=== PATIENT | male | born 1945 | race Caucasian/White ===

== ENCOUNTER 2016-10-26 03:51 | Emergency (ER) | payer MEDICARE ==
[2016-10-26 05:52] VITALS: BMI 27.9
--- NOTE | 2016-10-26 06:07 | PDOC ---
History of Present Illness - General History Source: Patient Exam Limitations: No Limitations - History of Present Illness Initial Comments: 10/26/16 06:27 The patient is a 71 year old male, with significant past medical history of HTN , DM, who presents today complaining of 2 days of a stiff neck that is progressively worsening. The patient states that he is unable to turn his head from left to right or up and down. He does not think that he slept uncomfortably. He has not had a recent change in medications. Denies recent trauma. Denies heavy lifting. Denies fever, chills, nausea, vomiting. Allergies: seafood Social Hx: No tobacco use. No alcohol use. PCP- Dr. Abimael Desai <Kriss Juarez - Last Filed: 10/26/16 06:33> <Della Monahan - Last Filed: 10/26/16 11:04> <Skyla Hagan - Last Filed: 10/27/16 05:41> - General Chief Complaint: Pain, Acute Stated Complaint: NECK PAIN Time Seen by Provider: 10/26/16 06:04 Past History <Kriss Juarez - Last Filed: 10/26/16 06:33> <Della Monahan - Last Filed: 10/26/16 11:04> - Psycho/Social/Smoking Cessation Hx Anxiety: No Suicidal Ideation: No Smoking Status: No Smoking History: Never smoked Have you smoked in the past 12 months: No Number of Cigarettes Smoked Daily: 0 Information on smoking cessation initiated: No Hx Alcohol Use: No Drug/Substance Use Hx: No <Skyla Hagan - Last Filed: 10/27/16 05:41> - Past Medical History Allergies/Adverse Reactions: Allergies Allergy/AdvReac Type Severity Reaction Status Date / Time No Known Drug Allergies Allergy Verified 10/26/16 06:37 SEAFOOD Allergy Rash Uncoded 10/26/16 06:35 Home Medications: Ambulatory Orders Ibuprofen [Advil -] 400 mg PO PRN 10/26/16 Methocarbamol [Robaxin -] 500 mg PO BID PRN #14 tablet 10/26/16 Review of Systems - Review of Systems Able to Perform ROS?: Yes Comments:: 10/26/16 06:27 GENERAL/CONSTITUTIONAL: No fever or chills. No weakness. HEAD, EYES, EARS, NOSE AND THROAT: No change in vision. No ear pain or discharge. No sore throat. CARDIOVASCULAR: No chest pain or shortness of breath. RESPIRATORY: No cough, wheezing, or hemoptysis. GASTROINTESTINAL: No nausea, vomiting, diarrhea or constipation. GENITOURINARY: No dysuria, frequency, or change in urination. MUSCULOSKELETAL: +neck stiffness. No joint or muscle swelling or pain. No back pain. SKIN: No rash NEUROLOGIC: No headache, vertigo, loss of consciousness, or change in strength/ sensation. ENDOCRINE: No increased thirst. No abnormal weight change. HEMATOLOGIC/LYMPHATIC: No anemia, easy bleeding, or history of blood clots. ALLERGIC/IMMUNOLOGIC: No hives or skin allergy. <Kriss Juarez - Last Filed: 10/26/16 06:33> *Physical Exam - Vital Signs Last Vital Signs Temp Pulse Resp BP Pulse Ox 98.7 F 80 14 158/82 98 10/26/16 05:50 10/26/16 05:50 10/26/16 05:50 10/26/16 05:50 10/26/16 05:50 - Physical Exam Comments: 10/26/16 06:27 GENERAL: Awake, alert, and fully oriented, in no acute distress HEAD: No signs of trauma EYES: PERRLA, EOMI, sclera anicteric, conjunctiva clear ENT: Auricles normal inspection, hearing grossly normal, nares patent, oropharynx clear without exudates. Moist mucosa NECK: neck is flexed and slightly turned to the right. no lymphadenopathy, JVD, or masses LUNGS: Breath sounds equal, clear to auscultation bilaterally. No wheezes, and no crackles HEART: Regular rate and rhythm, normal S1 and S2, no murmurs, rubs or gallops ABDOMEN: Soft, nontender, normoactive bowel sounds. No guarding, no rebound. No masses EXTREMITIES: Normal range of motion, no edema. No clubbing or cyanosis. No cords, erythema, or tenderness NEUROLOGICAL: Cranial nerves II through XII grossly intact. Normal speech, normal gait SKIN: Warm, Dry, normal turgor, no rashes or lesions noted. <Kriss Juarez - Last Filed: 10/26/16 06:33> - Vital Signs Last Vital Signs Temp Pulse Resp BP Pulse Ox 98.0 F 79 18 139/70 98 10/26/16 07:00 10/26/16 07:00 10/26/16 07:00 10/26/16 07:00 10/26/16 07:05 <Della Monahan - Last Filed: 10/26/16 11:04> - Vital Signs Last Vital Signs Temp Pulse Resp BP Pulse Ox 98.7 F 80 14 158/82 98 10/26/16 05:50 10/26/16 05:50 10/26/16 05:50 10/26/16 05:50 10/26/16 05:50 <Skyla Hagan - Last Filed: 10/27/16 05:41> ED Treatment Course - LABORATORY CBC & Chemistry Diagram: 10/26/16 07:55 10/26/16 07:55 - ADDITIONAL ORDERS Additional order review: Laboratory Results 10/26/16 07:55 Sodium 135 L Potassium 4.5 Chloride 96 L Carbon Dioxide 29 Anion Gap 10 BUN 14 Creatinine 0.6 L Creat Clearance w eGFR > 60 Random Glucose 318 H* Calcium 9.4 Total Bilirubin 0.6 AST 20 ALT 23 Alkaline Phosphatase 108 Total Protein 7.9 Albumin 3.9 10/26/16 07:55 RBC 4.24 MCV 82.6 MCHC 34.2 RDW 14.1 MPV 10.4 Neutrophils % 73.4 Lymphocytes % 10.9 Monocytes % 9.3 Eosinophils % 6.0 H Basophils % 0.4 - Medications Given in the ED: ED Medications Discontinued Medications Generic Name Dose Route Start Last Admin Trade Name Joseq PRN Reason Stop Dose Admin Benztropine Mesylate 1 mg 10/26/16 06:15 10/26/16 07:00 Cogentin Injection - IM 10/26/16 06:16 1 mg ONCE ONE Administration Diphenhydramine HCl 50 mg 10/26/16 06:13 10/26/16 07:00 Benadryl Injection - IM 10/26/16 06:14 50 mg ONCE ONE Administration Methocarbamol 500 mg 10/26/16 10:09 10/26/16 10:16 Robaxin - PO 10/26/16 10:10 500 mg ONCE ONE Administration Oxycodone/Acetaminophen 2 combo 10/26/16 06:47 10/26/16 07:16 Percocet 5/325 - PO 10/26/16 06:48 2 combo ONCE ONE Administration Sodium Chloride 500 ml 10/26/16 07:08 10/26/16 07:25 Normal Saline - IV 10/26/16 07:09 500 ml ONCE ONE Administration <Della Monahan - Last Filed: 10/26/16 11:04> - LABORATORY CBC & Chemistry Diagram: 10/26/16 07:55 10/26/16 07:55 <Skyla Hagan - Last Filed: 10/27/16 05:41> Medical Decision Making - Medical Decision Making 10/26/16 11:04 Pt reassessed. Pain and torticollis improved with robaxin. He is ambulatory, stable for DC home. <Della Monahan - Last Filed: 10/26/16 11:04> - Medical Decision Making 10/26/16 06:22 Pt comes with torticollis and neck spasm. He has no history of taking a medication that could have resulted in the torticollis. He states that this is ongoing x 2 days. He has not taken anything for it. He has HTN and DM and takes BP medication and janumet as needed. No sleeping pills and no antidepressants. Pt has no other complaints. He has never had this before. He did not sleep[in a funny position or inujure his neck. He lives alone and hopped in a cab to come to the ER. Pt's exam other than the neck muscle spasm is normal. <Skyla Hagan - Last Filed: 10/27/16 05:41> *DC/Admit/Observation/Transfer - Attestations Scribe Attestion: 10/26/16 06:33 Documentation prepared by MARINE Church, acting as medical office technician for Skyla Hagan MD. <Kriss Juarez - Last Filed: 10/26/16 06:33> - Discharge Dispostion Admit: No <Della Monahan - Last Filed: 10/26/16 11:04> <Skyla Hagan - Last Filed: 10/27/16 05:41> Diagnosis at time of Disposition: Torticollis - Discharge Dispostion Disposition: HOME Condition at time of disposition: Improved - Prescriptions Prescriptions: Methocarbamol [Robaxin -] 500 mg PO BID PRN #14 tablet PRN Reason: Muscle Spasms - Referrals Referrals: Abimael Desai MD [Primary Care Provider] - - Patient Instructions Printed Discharge Instructions: DI for Torticollis
[2016-10-26] MEDS ORDERED: BENZTROPINE MESYLATE 2 MG/2 ML INJECTION IM ONE (06:15)
[2016-10-26] MEDS ORDERED: OXYCODONE/APAP 5/325MG COMBO TABLET PO ONE (06:47)
[2016-10-26] MEDS ORDERED: OXYCODONE/APAP 5/325MG COMBO TABLET ONE (07:07)
[2016-10-26] MEDS ORDERED: SODIUM CHLORIDE 0.9% 500 ML INFUS.BAG IV ONE (07:08)
[2016-10-26 08:27] LABS: BASOPHIL 0.4 % (0-2.0); MCH 28.3 pg (25.7-33.7); MCHC 34.2 g/dl (32.0-35.9); MEAN CELL VOLUME 82.6 fl (80-96); MEAN PLT VOLUME 10.4 fl (7.5-11.1); NEUTROPHILS 73.4 % (42.8-82.8); PLATELET COUNT 173 K/MM3 (134-434); RDW 14.1 % (11.9-15.9); WHITE BLOOD COUNT 8.2 K/mm3 (4.0-10.0)
[2016-10-26 08:37] LABS: ALBUMIN 3.9 g/dl (3.4-5.0); ANION GAP 10 (8-16); BILIRUBIN,TOTAL 0.6 mg/dL (0.2-1.0); CALCIUM 9.4 mg/dL (8.5-10.1); CO2 29 mmol/L (21-32); SGOT/AST 20 U/L (15-37); SGPT/ALT 23 U/L (12-78); TOT PROT 7.9 g/dl (6.4-8.2)
[2016-10-26 08:38] LABS: ALK PHOS 108 U/L (45-117); CREATININE 0.6 mg/dL (0.7-1.3)
[2016-10-26 08:46] LABS: GLUCOSE,RANDOM 318 mg/dL (74-106)
[2016-10-26] MEDS ORDERED: METHOCARBAMOL 500 MG TABLET PO ONE (10:09)
[2016-10-26 10:11] VITALS: TEMP 98
[2016-10-26] MEDS ORDERED: METHOCARBAMOL 500 MG TABLET ONE (10:12)
[2016-10-26 11:11] VITALS: BP 135/65; PULSE 86
== END 2016-10-26 11:41 | disposition home or self-care (01) ==
LOC: JER 03:51
PROC: 3E023GC Introduction of Other Therapeutic Substance into Muscle, Percutaneous Approach (ICD-10-PCS; principal; 2016-10-26)
PROC: 3E023GC Introduction of Other Therapeutic Substance into Muscle, Percutaneous Approach (ICD-10-PCS; 2016-10-26)
DX: G24.3 Spasmodic torticollis (principal); I10 Essential (primary) hypertension; E11.9 Type 2 diabetes mellitus without complications
CPT/HCPCS: 36415; 80053; 85025; 96372; 99284-25

== ENCOUNTER 2022-02-14 18:39 | Emergency (ER) | payer OTHER ==
[2022-02-14 18:57] VITALS: BP 143/77; PULSE 101; RESP 18; TEMP 97.8; BMI 25.9
[2022-02-14] MEDS ORDERED: KETOROLAC TROMETHAMINE 15 MG/ML VIAL IM ONE (19:51)
[2022-02-14] MEDS ORDERED: KETOROLAC TROMETHAMINE 15 MG/ML VIAL ONE (19:52)
[2022-02-14] MEDS ORDERED: CYCLOBENZAPRINE HCL 10 MG TABLET (FP) ONE (20:47)
[2022-02-14] MEDS ORDERED: CYCLOBENZAPRINE HCL 10 MG TABLET (FP) PO ONE (20:47)
== END 2022-02-14 21:11 | disposition home or self-care (01) ==
LOC: JERFT 18:39
PROC: 3E0233Z Introduction of Anti-inflammatory into Muscle, Percutaneous Approach (ICD-10-PCS; principal; 2022-02-14)
DX: M54.2 Cervicalgia (principal)
CPT/HCPCS: 99284-25